=== PATIENT | female | born 2000 | race Caucasian/White ===

== ENCOUNTER 2024-11-24 14:44 | Outpatient (REF) | payer OTHER, SELFPAY ==
--- OUTSIDE RECORDS SUMMARY | 2024-11-24 09:30 | XMS_ITS | Encounter Summary ---
Author Organization [facility] Address [address] [place] [address] Care Team Providers Care Count Room Clerk Name Role Phone Unavailable Primary Care Provider Unavailabl e Reason for Visit * Reason Comments Well Women Visit Encounter Details Date Type Department Care Team (Latest Contact Info) Description 11/24/2024 9:30 AM EDT Procedure Visit [facility] [address] [place] [id number] Lenka Rutherford PA [address] [place], [facility]11 Well woman exam with routine gynecological exam Social History Tobacco Use Types Packs/Day Years Used Date Smoking Tobacco: Never Smokeless Tobacco: Never Comments No Sex and Gender Information Value Date Recorded Sex Assigned at Not on file Legal Sex Female 7:34 PM EDT Gender Identity Not on file Sexual Orientation Not on file documented as of this encounter Last Filed Vital Signs Vital Sign Reading Time Taken Comments Blood Pressure 138/80 11/24/2024 9:33 AM EDT Pulse - - Temperature - - Respiratory Rate - - Oxygen Saturation - - Inhaled Oxygen Concentration - - Weight 82.3 kg (181 lb 6.4 oz) 11/24/2024 9:33 A M EDT Height - - Body Mass Index 35.43 10/17/2021 12:00 PM EDT documented in this encounter Progress Notes * SAMIR Chi - 11/24/2024 9:30 AM EDT Reason for Appointment: Patient ID: Blanca Mason is a 24 y.o. female who presents for Well Women Visit Patient presents today for Annual Exam. MEDICATIONS Current Outpatient Medications Medication Instructions Norgestimate-Eth Estradiol (Ortho Tri-Cyclen Lo) 0.18/0.215/0.25 MG-25 MCG tablet Ortho Tri-Cyclen Lo ALLERGIES Allergies Allergen Reactions Cefuroxime Hives PROBLEMS Active Ambulatory Problems Diagnosis Date Noted Vaginal itching 09/27/2024 Resolved Ambulatory Problems Diagnosis Date Noted No Resolved Ambulatory Problems No Additional Past Medical History HISTORY PAST MEDICAL HISTORY SOCIAL HISTORY History reviewed. No pertinent past medical history. Social History Tobacco Use Smoking status: Never Smokeless tobacco: Never Substance Use Topics Alcohol use: Not on file Drug use: Not on file FAMILY HISTORY No family history on file. SURGICAL HISTORY History reviewed. No pertinent surgical history. REVIEW OF SYSTEMS Review of Systems: Review of Systems Constitutional: Negative. HENT: Negative. Eyes: Negative. Respiratory: Negative. Cardiovascular: Negative. Gastrointestinal: Negative. Genitourinary: Negative. Musculoskeletal: Negative. Skin: Negative. Neurological: Negative. All other systems reviewed and are negative. Hematological: Negative. Endocrine: Negative. Allergic/Immunologic: Negative. OBJECTIVE Objective: Physical Exam Constitutional: Appearance: Normal appearance. She is well-developed. Genitourinary: Vulva normal. Right Adnexa: not tender and no mass present. Left Adnexa: not tender and no mass present. No cervical discharge. Breasts: Breasts are soft. Right: Normal. Left: Normal. HENT: Head: Normocephalic. Nose: Nose normal. Mouth/Throat: Mouth: Mucous membranes are moist. Cardiovascular: Rate and Rhythm: Normal rate and regular rhythm. Pulmonary: Effort: Pulmonary effort is normal. Breath sounds: Normal breath sounds. Abdominal: General: Bowel sounds are normal. There is no distension. Palpations: Abdomen is soft. Tenderness: There is no abdominal tenderness. There is no guarding or rebound. Musculoskeletal: General: No swelling. Normal range of motion. Cervical back: Normal range of motion. Right lower leg: No edema. Left lower leg: No edema. Neurological: General: No focal deficit present. Mental Status: She is alert and oriented to person, place, and time. Skin: General: Skin is warm and dry. Psychiatric: Mood and Affect: Mood normal. Behavior: Behavior normal. Vitals and nursing note reviewed. Exam conducted with a cost and sales record supervisor present. Vitals: Estimated body mass index is 35.43 kg/m?? as calculated from the following: Height as of 22: 5'. Weight as of this encounter: 181 lb 6.4 oz. BP: 138/80 Patient's last menstrual period was 11/02/2024. ASSESSMENT & PLAN ICD-10-CM 1. Well woman exam with routine gynecological exam Z01.419 Pap Smear Annual Exam: Patient presents today for an annual exam. Patient states she is doing well and has no complaints. Pap was obtained without difficulty. Follow Up: Patient is to return in one year for annual unless needed otherwise. Documented by Stormy Rojo LPN on behalf of: SAMIR Chi documented in this encounter Plan of Treatment Upcoming Encounters Date Type Department Care Team (Late st Contact Info) Description 11/28/2025 9:00 AM EDT Procedure Visit [facility] [address] [facility] [place] [phone] Lenka Rutherford PA [address] [place] [address] Scheduled Orders Name Type Priority Associated Diagnoses Orde r Schedule Pap Smear Pathology and Cytology Routine Well woman exam with routine gynecological exam Ordered: 11/24/2024 documented as of this encounter Visit Diagnoses Diagnosis Well woman exam with routine gynecological exam Routine gynecological examination documented in this encounter
--- OUTSIDE RECORDS SUMMARY | 2024-11-24 14:57 | XMS_ITS | Encounter Summary ---
Author Organization [facility] Address [address] [place] [address] Care Team Providers Care Assembler Filters Name Role Phone Unavailable Primary Care Provider Unavailabl e Encounter Details Date Type Department Care Team (Late st Contact Info) Description 11/24/2024 Bamboo flowsheet [facility] [address] [place] [address] Lenka Rutherford, PA [address] [place], [facility]11 Social History Tobacco Use Types Packs/Day Years Used Date Smoking Tobacco: Never Smokeless Tobacco: Never Comments No Sex and Gender Information Value Date Recorded Sex Assigned at Not on file Legal Sex Female 7:34 PM EDT Gender Identity Not on file Sexual Orientation Not on file documented as of this encounter Plan of Treatment Upcoming Encounters Date Type Department Care Team (Late st Contact Info) Description 11/28/2025 9:00 AM EDT Procedure Visit [facility] [address] [place] [phone] Lenka Rutherford PA [address] [place], [facility]11 documented as of this encounter Visit Diagnoses Not on filedocumented in this encounter
--- OUTSIDE RECORDS SUMMARY | 2024-11-24 14:57 | XMS_ITS | Clinical Summary ---
Author Organization [facility] Address [address] [place] [address] Care Team Providers Care Lumite Injector Name Role Phone Unavailable Primary Care Provider Unavailabl e Allergies Active Allergy Reactions Criticality Noted Date Comments Cefuroxime Hives 07/12/2024 Medications Norgestimate-Et h Estradiol (Ortho Tri-Cyclen Lo) 0.18/0.215/0.25 MG-25 MCG tablet Ortho Tri-Cyclen Lo 5 11/25/19 25 Active norgestimate-et hinyl estradiol (Ortho Tri-Cyclen,Theresa essa) 0.18/0.215/0.25 MG-35 MCG tabletIndicatio ns: control counseling TAKE 1 TABLET BY MOUTH EVERY DAY IN THE MORNING 84 tablet 4 4 11/17/19 25 Discontinu ed(Therapy completed) Norgestimate-Et h Estradiol (Ortho Tri-Cyclen Lo) 0.18/0.215/0.25 MG-25 MCG tablet Ortho Tri-Cyclen Lo 11/17/19 25 Discontinu ed(Therapy completed) Active Problems Problem Noted Date Diagnosed Date Vaginal itching 09/27/2024 Encounters Date Type Department Care Team Description 11/24/2024 9:30 AM EDT Procedure Visit [facility] [address] [place] [address] Lenka Rutherford PA Well woman exam with routine gynecological exam 11/24/2024 Bamboo flowsheet [facility] [address] [place] [address] Lenka Rutherford PA 09/29/2024 Telephone [facility] [address] [place] [address] Angeles Monroy MA 09/27/2024 8:40 AM EDT Office Visit [facility] [address] [place] [address] Lenka Rutherford PA Vaginal itching; Vaginal irritation; Yeast infection 09/27/2024 External Result Encounter [facility] External Department Unsolicited Lenka Rutherford PA 09/27/2024 Bamboo flowsheet [facility] [address] [place] [address] Lenka Rutherford PA from Last 3 Months Social History Tobacco Use Types Packs/Day Years Used Date Smoking Tobacco: Never Smokeless Tobacco: Never Tobacco Cessation:Counseling Given: Not Answered Comments No Sex and Gender Information Value Date Recorded Sex Assigned at Not on file Legal Sex Female 7:34 PM EDT Gender Identity Not on file Sexual Orientation Not on file Last Filed Vital Signs Vital Sign Reading Time Taken Comments Blood Pressure 138/80 11/24/2024 9:33 AM EDT Pulse - - Temperature - - Respiratory Rate - - Oxygen Saturation - - Inhaled Oxygen Concentration - - Weight 82.3 kg (181 lb 6.4 oz) 11/24/2024 9:33 A M EDT Height 152.4 cm (5') 10/17/2021 12:00 PM EDT Body Mass Index 35.43 10/17/2021 12:00 PM EDT Plan of Treatment Upcoming Encounters Date Type Department Care Team (Late st Contact Info) Description 11/28/2025 9:00 AM EDT Procedure Visit [facility] [address] [place] [address] Lenka Rutherford PA [address] [place], [place] [id number] Procedures Procedure Name Priority Date/Time Associated Diagnosis Comments RECURRENT VAGINITIS (HTRX) Routine 09/27/2024 12:30 PM EDT from Last 3 Months Results * (ABNORMAL) RECURRENT VAGINITIS (HTRX) (09/27/2024 12:30 PM EDT) [facility] ATOPOBIUM VAGINAE 20.095(A) 19.961 - 24.689 ppm 09/28/2024 7:33 AM EDT [facility] ATOPOBIUM VAGINAE Detected(A) 19.961 - 24.689 ppm 09/28/2024 7:33 AM EDT [facility] BVAB 2,3 (BACTERIAL VAGINOSIS ASSOCIATED BACTERIA 2, 3); MOBILUNCUS SPP 25.282(A) 19.961 - 24.689 ppm 09/28/2024 7:33 AM EDT [facility] BVAB 2,3 (BACTERIAL VAGINOSIS ASSOCIATED BACTERIA 2, 3); MOBILUNCUS SPP Detected(A) 19.961 - 24.689 ppm 09/28/2024 7:33 AM EDT [facility] LEWIS ALBICANS, PARAPSILOSIS, TROPICALIS 27.242(A) 19.961 - 30.770 ppm 09/28/2024 7:33 AM EDT [facility] LEWIS ALBICANS, PARAPSILOSIS, TROPICALIS Detected(A) 19.961 - 30.770 ppm 09/28/2024 7:33 AM EDT [facility] LEWIS GLABRATA 0 23.000 - 32.138 ppm 09/28/2024 7:33 AM EDT [facility] LEWIS GLABRATA Not Detected 23.000 - 32.138 ppm 09/28/2024 7:33 AM EDT [facility] LEWIS KRUSEI 0 23.000 - 32.271 ppm 09/28/2024 7:33 AM EDT [facility] LEWIS KRUSEI Not Detected 23.000 - 32.271 ppm 09/28/2024 7:33 AM EDT [facility] CHLAMYDIA TRACHOMATIS 0 23.000 - 31.467 ppm 09/28/2024 7:33 AM EDT [facility] CHLAMYDIA TRACHOMATIS Not Detected 23.000 - 31.467 ppm 09/28/2024 7:33 AM EDT [facility] GARDNERELLA VAGINALIS 23.459(A) 19.961 - 24.689 ppm 09/28/2024 7:33 AM EDT [facility] GARDNERELLA VAGINALIS Detected(A) 19.961 - 24.689 ppm 09/28/2024 7:33 AM EDT [facility] MEGASPHAERA (TYPES 1, 2) 20.38(A) 19.961 - 24.689 ppm 09/28/2024 7:33 AM EDT [facility] MEGASPHAERA (TYPES 1, 2) Detected(A) 19.961 - 24.689 ppm 09/28/2024 7:33 AM EDT [facility] NEISSERIA GONORRHOEAE 0 23.000 - 32.117 ppm 09/28/2024 7:33 AM EDT [facility] NEISSERIA GONORRHOEAE Not Detected 23.000 - 32.117 ppm 09/28/2024 7:33 AM EDT [facility] TRICHOMONAS VAGINALIS 0 23.000 - 32.119 ppm 09/28/2024 7:33 AM EDT [facility] TRICHOMONAS VAGINALIS Not Detected 23.000 - 32.119 ppm 09/28/2024 7:33 AM EDT [facility] MYCOPLASMA GENITALIUM 0 19.961 - 24.689 ppm 09/28/2024 7:33 AM EDT [facility] MYCOPLASMA GENITALIUM Not Detected 19.961 - 24.689 ppm 09/28/2024 7:33 AM EDT [facility] ERMB, C; MEFA 21.032(A) 23.000 - 27.611 ppm 09/28/2024 7:33 AM EDT [facility] ERMB, C; MEFA Detected(A) 23.000 - 27.611 ppm 09/28/2024 7:33 AM EDT [facility] TET B, TET M 20.493(A) 23.000 - 27.778 ppm 09/28/2024 7:33 AM EDT [facility] TET B, TET M Detected(A) 23.000 - 27.778 ppm 09/28/2024 7:33 AM EDT [facility] Tissue 09/27/2024 12:3 0 PM EDT 09/28/2024 2:40 AM EDT us Lenka DAWSON LAB BLOOD ORDERABLES Final Resul t [facility] [address] [place] [address] from Last 3 Months Insurance [employer]
[2024-11-26 12:09] LABS: Age Gdln ACOG Testing Note (.); IGP, rfx Aptima HPV ASCU Note (.)
== END 2024-11-24 14:45 | disposition home or self-care (01) ==
LOC: LAB 14:44
PROVIDERS: PCP Family Medicine; Visit Provider Physician Assistant
DX: Z01.419 Encounter for gynecological examination (general) (routine) without abnormal findings (principal)
CPT/HCPCS: 88175